=== PATIENT | female | born 1960 | race Hispanic/Latino ===

== ENCOUNTER 2018-02-18 13:48 | Emergency (ER) | payer MEDICAID | END 2018-02-18 14:48 | disposition home or self-care (01) | LOC: EDH 13:48 | DX: S90.122A Contusion of left lesser toe(s) without damage to nail, initial encounter (principal); E11.9 Type 2 diabetes mellitus without complications; I10 Essential (primary) hypertension; E07.9 Disorder of thyroid, unspecified; W22.8XXA Striking against or struck by other objects, initial encounter; Y93.89 Activity, other specified; Y92.89 Other specified places as the place of occurrence of the external cause; Y99.8 Other external cause status | CPT/HCPCS: 73630 ==

== ENCOUNTER → 2018-05-01 | Outpatient (CLI) | payer MEDICAID ==
[~2018-05-01] MED LIST: ALEN70TA47 PO; ASPI-555 PO; GLYB-228 PO; INVOK100TB PO; LEVO50TA11 PO; LISI-617 PO; METO-408 PO; SIMV20TA6 PO
== END | disposition home or self-care (01) ==
LOC: RAH 14:25
PROVIDERS: ATTEND Internal Medicine
DX: M79.641 Pain in right hand (principal)
CPT/HCPCS: 73130

== ENCOUNTER 2018-09-17 05:50 | Day surgery (SDC) | payer MEDICAID ==
[~2018-09-17] VITALS: Ht 154.9 cm; Wt 62.7 kg
[~2018-09-17 05:50] MED LIST changes: +SODIUM CHLORIDE 0.9% 1000ML 1,000 ML IV ONE
[2018-09-17 06:10] VITALS: BP 145/71
[2018-09-17] MEDS ORDERED: PROPOFOL 10 MG/ML 20ML VIAL IV ONE (06:56)
[2018-09-17] MEDS ORDERED: GLYCOPYRROLATE 0.2 MG/ML 5 ML VIAL ONE (06:56)
[2018-09-17] MEDS ORDERED: LIDOCAINE HCL-MPF 2% 5ML VIAL ONE (06:56)
[2018-09-17 07:14] VITALS: BP 118/66
[2018-09-17 07:16] VITALS: BP 120/64
[2018-09-17 07:22] VITALS: BP 131/67
[2018-09-17 07:36] VITALS: BP 128/67
== END 2018-09-17 07:40 | disposition home or self-care (01) ==
LOC: DAH 05:50 → ENDO 05:50
PROVIDERS: ATTEND Internal Medicine Gastroenterology
DX: R19.4 Change in bowel habit (principal); E11.9 Type 2 diabetes mellitus without complications; K21.9 Gastro-esophageal reflux disease without esophagitis; E03.9 Hypothyroidism, unspecified; K21.0 Gastro-esophageal reflux disease with esophagitis; F32.9 Major depressive disorder, single episode, unspecified; I10 Essential (primary) hypertension; E78.5 Hyperlipidemia, unspecified; Z53.8 Procedure and treatment not carried out for other reasons; Z79.899 Other long term (current) drug therapy; Z79.82 Long term (current) use of aspirin; Z79.84 Long term (current) use of oral hypoglycemic drugs; Z98.890 Other specified postprocedural states; Z90.710 Acquired absence of both cervix and uterus; Z90.721 Acquired absence of ovaries, unilateral
CPT/HCPCS: 45378; 82948 ×2; A4606; J2704; J3490 ×2; J7030

== ENCOUNTER 2018-11-19 05:31 | Day surgery (SDC) | payer MEDICAID ==
[~2018-11-19] VITALS: Ht 154.9 cm; Wt 63.8 kg
[~2018-11-19 05:31] MED LIST changes: -SODIUM CHLORIDE 0.9% 1000ML 1,000 ML IV ONE
[2018-11-19] MEDS ORDERED: SODIUM CHLORIDE 0.9% 1000ML 1,000 ML IV ONE ×2 (05:42→06:27)
[2018-11-19 06:03] VITALS: BP 126/66
[2018-11-19] MEDS ORDERED: PROPOFOL 10 MG/ML 20ML VIAL IV ONE (07:23)
[2018-11-19 07:45] VITALS: BP 114/56
[2018-11-19 07:50] VITALS: BP 109/58
[2018-11-19 07:55] VITALS: BP 121/54
== END 2018-11-19 08:05 | disposition home or self-care (01) ==
LOC: ENDO 05:31 → DAH 05:31 → ENDO 08:05
PROVIDERS: ATTEND Internal Medicine
DX: K62.1 Rectal polyp (principal); K64.0 First degree hemorrhoids; I10 Essential (primary) hypertension; E03.9 Hypothyroidism, unspecified; E11.9 Type 2 diabetes mellitus without complications; K21.0 Gastro-esophageal reflux disease with esophagitis; G47.00 Insomnia, unspecified; F32.9 Major depressive disorder, single episode, unspecified; E78.5 Hyperlipidemia, unspecified; Z79.899 Other long term (current) drug therapy; Z98.890 Other specified postprocedural states; Z90.710 Acquired absence of both cervix and uterus; K57.30 Diverticulosis of large intestine without perforation or abscess without bleeding
CPT/HCPCS: 45380; 82948 ×2; 88305; A4606; J2704; J7030 ×2

== ENCOUNTER → 2019-01-06 | Outpatient (CLI) | payer MEDICAID ==
[~2019-01-06] MED LIST changes: +ALEN70TA10 PO; -ALEN70TA47 PO
== END | disposition home or self-care (01) ==
LOC: RAH 09:45
PROVIDERS: ATTEND Internal Medicine Gastroenterology
DX: R14.0 Abdominal distension (gaseous) (principal); R10.9 Unspecified abdominal pain; R11.2 Nausea with vomiting, unspecified
CPT/HCPCS: 78264; A9541

== ENCOUNTER → 2019-03-27 | Outpatient (CLI) | payer MEDICAID | LOC: OIH 15:42 | PROVIDERS: ATTEND Internal Medicine Gastroenterology | DX: R10.30 Lower abdominal pain, unspecified (principal) | CPT/HCPCS: 74018 ==

== ENCOUNTER → 2019-04-08 | Outpatient (CLI) | payer MEDICAID ==
[~2019-04-08] MED LIST changes: +IOHEXOL 350 MG/ML 100ML INFUS..BTL IV ONE
[2019-04-08 12:39] LABS: BASOPHILS % (AUTO) 1.2 % (0.0-5.0); EOSINOPHILS % (AUTO) 3.4 % (0.0-8.0); LYMPHOCYTES % (AUTO) 34.9 % (21.0-51.0); MEAN CORPUSCULAR HEMOGLOBIN 27.5 pg (27.0-33.0); MEAN CORPUSCULAR HGB CONC 33.5 g/dL (32.0-36.0); MEAN CORPUSCULAR VOLUME 82.1 fL (79-99); MONOCYTES % (AUTO) 5.3 % (3.0-13.0); NEUTROPHILS % (AUTO) 55.2 % (40.0-77.0); PLATELET COUNT (AUTO) 370 K/uL (130-400); RED BLOOD CELL COUNT(AUTO) 4.26 MIL/uL (4.00-5.50); WHITE BLOOD COUNT (AUTO) 8.9 K/uL (4.8-10.8)
[2019-04-08 13:01] LABS: ALBUMIN 3.9 g/dL (3.5-5.0); CREATININE 0.7 mg/dL (0.5-1.5); POTASSIUM 4.8 mmol/L (3.5-5.1); TOTAL PROTEIN, SERUM 8.3 g/dL (6.0-8.3)
== END | disposition home or self-care (01) ==
LOC: RAH 11:32
PROVIDERS: ATTEND Internal Medicine
DX: K57.30 Diverticulosis of large intestine without perforation or abscess without bleeding (principal); M47.817 Spondylosis without myelopathy or radiculopathy, lumbosacral region
CPT/HCPCS: 36415; 74177; 80053; 85025; Q9967

== ENCOUNTER 2019-12-10 22:34 | Emergency (ER) | payer MEDICAID ==
[~2019-12-10 22:34] MED LIST changes: -GLYB-228 PO; +GLYB1TAB32 PO; -IOHEXOL 350 MG/ML 100ML INFUS..BTL IV ONE; +SIMV-43 PO; -SIMV20TA6 PO
[2019-12-10 23:44] LABS: BASOPHILS % (AUTO) 0.4 % (0.0-5.0); EOSINOPHILS % (AUTO) 2.6 % (0.0-8.0); HEMATOCRIT 32.1 % (36-48); LYMPHOCYTES % (AUTO) 32.7 % (21.0-51.0); MEAN CORPUSCULAR HEMOGLOBIN 27.5 pg (27.0-33.0); MEAN CORPUSCULAR HGB CONC 33.3 g/dL (32.0-36.0); MEAN CORPUSCULAR VOLUME 82.5 fL (79-99); MONOCYTES % (AUTO) 5.6 % (3.0-13.0); NEUTROPHILS % (AUTO) 58.4 % (40.0-77.0); PLATELET COUNT (AUTO) 373 K/uL (130-400); RED BLOOD CELL COUNT(AUTO) 3.89 MIL/uL (4.00-5.50); WHITE BLOOD COUNT (AUTO) 9.6 K/uL (4.8-10.8)
[2019-12-10 23:56] LABS: CREATININE 0.8 mg/dL (0.5-1.5); POTASSIUM 4.2 mmol/L (3.5-5.1)
[2019-12-10] MEDS ORDERED: DiphenhydrAMINE HCL 50 MG/ML VIAL ONE (23:57)
[2019-12-10] MEDS ORDERED: ONDANSETRON HCL 4 MG/2 ML VIAL ONE (23:58)
[2019-12-10] MEDS ORDERED: SODIUM CHLORIDE 0.9% 1000ML 1,000 ML IV ONE (23:58)
[2019-12-11] LABS: ALBUMIN 3.4 g/dL (3.5-5.0); BILIRUBIN,TOTAL 0.4 mg/dL (0.2-1.0)
[2019-12-11 00:26] LABS: APPEARANCE,URINE Clear (CLEAR); BILIRUBIN,URINE Negative (NEGATIVE); COLOR,URINE Yellow (YELLOW); GLUCOSE, URINE (UA) >=1000 mg/dL (NEGATIVE); KETONES,URINE Negative (NEGATIVE); LEUKOCYTE ESTERASE ,URINE Negative (NEGATIVE); NITRATE,URINE Negative (NEGATIVE); OCCULT BLOOD,URINE Negative (NEGATIVE); PROTEIN,URINE Negative (NEGATIVE)
[2019-12-11 00:44] LABS: BACTERIA,URINE None Seen /HPF (None Seen); RBC,URINE None Seen /HPF (0-1); SQUAMOUS EPITHELIAL CELL,UR Rare /HPF (0-2); WBC,URINE None Seen /HPF (0-1); YEAST,URINE BUDDING None Seen /HPF (None Seen)
== END 2019-12-11 01:44 | disposition home or self-care (01) ==
LOC: EDH 22:34
DX: E86.9 Volume depletion, unspecified (principal); H81.10 Benign paroxysmal vertigo, unspecified ear; E11.9 Type 2 diabetes mellitus without complications; I10 Essential (primary) hypertension; Z98.890 Other specified postprocedural states
CPT/HCPCS: 36415; 80053; 81001; 82550; 84484; 85025; 93005; 96361; 96374; 96375; 99285; J1200; J2405; J7030

== ENCOUNTER 2020-05-20 06:26 | Inpatient (IN) | payer MEDICAID ==
[~2020-05-20] VITALS: Ht 149.9 cm; Wt 51.1 kg
[~2020-05-20 06:26] MED LIST changes: -ASPI-555 PO; +ASPI-556 PO
[2020-05-20 07:24] LABS: APPEARANCE,URINE Clear (CLEAR); BILIRUBIN,URINE Negative (NEGATIVE); COLOR,URINE Yellow (YELLOW); GLUCOSE, URINE (UA) >=1000 mg/dL (NEGATIVE); KETONES,URINE Trace mg/dL (NEGATIVE); LEUKOCYTE ESTERASE ,URINE Negative (NEGATIVE); NITRATE,URINE Negative (NEGATIVE); OCCULT BLOOD,URINE Negative (NEGATIVE); PROTEIN,URINE Negative (NEGATIVE)
[2020-05-20] MEDS ORDERED: ONDANSETRON HCL 4 MG/2 ML VIAL ONE (07:25)
[2020-05-20 07:36] LABS: RBC,URINE 0-1 /HPF (0-1)
[2020-05-20 07:37] LABS: BACTERIA,URINE Rare /HPF (None Seen); WBC,URINE 0-1 /HPF (0-1)
[2020-05-20 07:52] LABS: BASOPHILS % (AUTO) 0.3 % (0.0-5.0); EOSINOPHILS % (AUTO) 0.1 % (0.0-8.0); LYMPHOCYTES % (AUTO) 14.7 % (21.0-51.0); MEAN CORPUSCULAR HEMOGLOBIN 26.6 pg (27.0-33.0); MEAN CORPUSCULAR HGB CONC 33.4 g/dL (32.0-36.0); MEAN CORPUSCULAR VOLUME 79.5 fL (79-99); MONOCYTES % (AUTO) 7.6 % (3.0-13.0); NEUTROPHILS % (AUTO) 76.4 % (40.0-77.0); PLATELET COUNT (AUTO) 246 K/uL (130-400); RED BLOOD CELL COUNT(AUTO) 4.78 MIL/uL (4.00-5.50); RED CELL DISTRIBUTION WIDTH 13.7 % (11.0-15.5); WHITE BLOOD COUNT (AUTO) 18.4 K/uL (4.8-10.8)
[2020-05-20 08:03] LABS: CREATININE 1.1 mg/dL (0.5-1.5); POTASSIUM 4.5 mmol/L (3.5-5.1)
[2020-05-20 08:08] LABS: ALBUMIN 4.2 g/dL (3.5-5.0); BILIRUBIN,TOTAL 0.6 mg/dL (0.2-1.0); TOTAL PROTEIN, SERUM 8.2 g/dL (6.0-8.3)
[2020-05-20] MEDS ORDERED: ZOSYN 3.375GM+NS 50ML 50 ML IV ONE (09:23)
[2020-05-20] MEDS ORDERED: IOHEXOL-350 75 ML VIAL IV ONE (10:06)
[2020-05-20] MEDS ORDERED: SODIUM CHLORIDE 0.9% 1000ML 1,000 ML IV ONE (11:08)
[2020-05-20] MEDS ORDERED: LACTATED RINGERS 1000ML 1,000 ML IV SCH (11:55)
[2020-05-20] MEDS ORDERED: ONDANSETRON HCL 4 MG/2 ML VIAL IV PRN (12:00)
[2020-05-20] MEDS ORDERED: ACETAMINOPHEN 325 MG TAB PO PRN ×2 (12:00)
[2020-05-20] MEDS ORDERED: HYDRALAZINE HCL 20 MG/ML VIAL IV PRN (12:00)
[2020-05-20] MEDS ORDERED: LACTATED RINGERS 1000ML 1,000 ML IV ONE (12:50)
[2020-05-20] MEDS ORDERED: SINCALIDE 5 MCG ML VIAL IV ONE (13:50)
[2020-05-20 17:00] VITALS: BP 125/70
[2020-05-20] MEDS: ZOSYN 3.375GM+NS 50ML 50 ML IV SCH ×2 (18:46→21:00)
[2020-05-20 20:06] VITALS: BP 130/54
[2020-05-20] MEDS: MORPHINE SULFATE 2 MG/ML 1ML SYG IV PRN (21:26)
[2020-05-20] MEDS: FAMOTIDINE/PF 20 MG/2 ML VIAL IV SCH (21:26)
[2020-05-20] MEDS ORDERED: ATOR40TA69 PO (21:45)
[2020-05-20] MEDS ORDERED: MORINGA PO (21:45)
[2020-05-20] MEDS ORDERED: METO-408 PO (21:45)
[2020-05-20] MEDS ORDERED: FENO48TA9 PO (21:45)
[2020-05-20] MEDS ORDERED: METF-444 PO ×2 (21:45)
[2020-05-21] VITALS (25 sets, daily range): BP systolic 100–165; BP diastolic 55–75
[2020-05-21] MEDS ORDERED: DEXTROSE 50%-WATER 50 ML DISP.SYRIN IV ONE (00:22)
--- NOTE | 2020-05-21 00:39 | NUR ---
PAGED SENIOR TECHNICAL WRITER PT BLOOD SUGAR IS 59. INITIATED HYPOGLYCEMIA PROTOCOL. ADMINISTERED DEXTROSE 50% VIA IV. TICO NELSON OROR CONT MONITORING OF PT, CHANGE IV FLUIDS TO D5 LR 100ML/HR. ORDERS PLACED INTO Outline App. WILL RECHECK BS AT 0100.
[2020-05-21] MEDS ORDERED: GLUCAGON 1MG KIT 1 MG ML IM PRN (00:45)
[2020-05-21] MEDS ORDERED: DEXTROSE 50%-WATER 50 ML DISP.SYRIN IV PRN (00:45)
[2020-05-21] MEDS: DEXTROSE 5%-LACTATED RINGERS 1,000 ML IV SCH ×3 (00:57→19:54)
[2020-05-21] MEDS: ZOSYN 3.375GM+NS 50ML 50 ML IV SCH ×3 (03:16→19:51)
[2020-05-21 05:41] LABS: BASOPHILS % (AUTO) 0.4 % (0.0-5.0); EOSINOPHILS % (AUTO) 1.3 % (0.0-8.0); HEMATOCRIT 28.7 % (36-48); LYMPHOCYTES % (AUTO) 27.3 % (21.0-51.0); MEAN CORPUSCULAR HGB CONC 32.8 g/dL (32.0-36.0); MEAN CORPUSCULAR VOLUME 79.5 fL (79-99); MONOCYTES % (AUTO) 10.1 % (3.0-13.0); NEUTROPHILS % (AUTO) 60.4 % (40.0-77.0); PLATELET COUNT (AUTO) 137 K/uL (130-400); RED BLOOD CELL COUNT(AUTO) 3.61 MIL/uL (4.00-5.50); WHITE BLOOD COUNT (AUTO) 11.6 K/uL (4.8-10.8)
[2020-05-21 05:46] LABS: HEMOGLOBIN A1C 6.4 % (4.0-6.0)
[2020-05-21 06:01] LABS: POTASSIUM 3.9 mmol/L (3.5-5.1)
[2020-05-21 06:13] LABS: ALBUMIN 3.1 g/dL (3.5-5.0); BILIRUBIN,DIRECT 0.1 mg/dL (0.0-0.3); BILIRUBIN,TOTAL 0.4 mg/dL (0.2-1.0); CREATININE 0.8 mg/dL (0.5-1.5); CRP QUANTITATIVE 30.8 mg/L (0.00-9.0)
[2020-05-21] MEDS: ENOXAPARIN SODIUM 30 MG/0.3 ML SQ SCH (09:00)
[2020-05-21] MEDS ORDERED: METOPROLOL SUCCINATE 50 MG TAB.SR.24H PO SCH (09:43)
[2020-05-21] MEDS: FAMOTIDINE/PF 20 MG/2 ML VIAL IV SCH ×2 (10:02→19:51)
[2020-05-21] MEDS: METOPROLOL SUCCINATE 50 MG TAB.SR.24H PO SCH (11:13)
[2020-05-21] MEDS ORDERED: ROCURONIUM 10MG/1ML SYR 10 MG/ML ML ONE (11:25)
[2020-05-21] MEDS ORDERED: PROPOFOL 10 MG/ML 20ML VIAL IV ONE (11:25)
[2020-05-21] MEDS ORDERED: LIDOCAINE PF 2% 5ML ABBOJECT ONE (11:25)
[2020-05-21] MEDS ORDERED: MIDAZOLAM HCL 1 MG/ML 2ML VIAL ONE (11:25)
[2020-05-21] MEDS ORDERED: ONDANSETRON HCL 4 MG/2 ML VIAL ONE (11:25)
[2020-05-21] MEDS ORDERED: SUCCINYLCHOLINE CHLORIDE 20 MG/ML 10 ML VIAL ONE (11:25)
[2020-05-21] MEDS ORDERED: BUPIVACAINE/PF 0.5% 10ML VIAL ONE (11:33)
[2020-05-21] MEDS ORDERED: FENTANYL CITRATE PF 50 MCG/1 ML 2ML VIAL ONE (11:57)
[2020-05-21] MEDS ORDERED: NEOSTIGMINE 5MG/5ML SYR IV ONE (12:26)
[2020-05-21] MEDS ORDERED: GLYCOPYRROLATE 1 MG/5 ML SYRINGE ONE (12:27)
[2020-05-21] MEDS ORDERED: MEPERIDINE-PF 25 MG/ML SYG ONE (13:13)
--- NOTE | 2020-05-21 17:45 | NUR ---
AMBULATE pt ambulated with assistance to BR ,linens soiled pt urinated ,complete linen change assisted back to bed Addendum: 05/21/20 at 1806 by KYLER CHARLES RN RN Amended: Links added.
[2020-05-21] MEDS: MORPHINE SULFATE 2 MG/ML 1ML SYG IV PRN (18:00)
--- NOTE | 2020-05-21 18:18 | NUR ---
cm note met with patient and [facility] resides athome with son gavi. [facility] ambulates per self, has provider 2hrs to assist with adls,and transport. attends adult day care during the week and [place]. [place] [facility] no needs. Addendum: 05/21/20 at 1822 by SANTHOSH STEEN CM Amended: Links added.
[2020-05-21] MEDS: ATORVASTATIN CALCIUM 40 MG TABLET PO SCH (19:51)
[2020-05-21] MEDS: FENOFIBRATE NANOCRYSTALLIZED 48 MG TAB PO SCH (19:55)
[2020-05-21] MEDS ORDERED: FENOFIBRATE NANOCRYSTALLIZED 48 MG TAB PO SCH (21:00)
[2020-05-22] VITALS: BP 138/65
[2020-05-22 04:02] VITALS: BP 136/64
[2020-05-22] MEDS: DEXTROSE 5%-LACTATED RINGERS 1,000 ML IV SCH (04:47)
[2020-05-22] MEDS: ZOSYN 3.375GM+NS 50ML 50 ML IV SCH ×3 (04:47→19:42)
[2020-05-22 05:23] LABS: BASOPHILS % (AUTO) 0.3 % (0.0-5.0); EOSINOPHILS % (AUTO) 0.5 % (0.0-8.0); HEMATOCRIT 27.4 % (36-48); LYMPHOCYTES % (AUTO) 22.1 % (21.0-51.0); MEAN CORPUSCULAR HEMOGLOBIN 26.6 pg (27.0-33.0); MEAN CORPUSCULAR HGB CONC 34.3 g/dL (32.0-36.0); MEAN CORPUSCULAR VOLUME 77.6 fL (79-99); MONOCYTES % (AUTO) 8.2 % (3.0-13.0); PLATELET COUNT (AUTO) 117 K/uL (130-400); RED BLOOD CELL COUNT(AUTO) 3.53 MIL/uL (4.00-5.50); RED CELL DISTRIBUTION WIDTH 14.1 % (11.0-15.5); WHITE BLOOD COUNT (AUTO) 12.9 K/uL (4.8-10.8)
[2020-05-22 05:59] LABS: BILIRUBIN,TOTAL 0.6 mg/dL (0.2-1.0); CREATININE 0.8 mg/dL (0.5-1.5); POTASSIUM 3.2 mmol/L (3.5-5.1); TOTAL PROTEIN, SERUM 6.2 g/dL (6.0-8.3)
--- NOTE | 2020-05-22 06:13 | NUR ---
HYPOKALCEMIA POTASSIUM LEVEL OF 3.2 REPORTED THIS AM. PAGED HOSPITALIST KORIN FOR POTASSIUM REPLACEMENT ORDERS. PENDING CALL BACK.
[2020-05-22 08:00] VITALS: BP 130/59
[2020-05-22] MEDS ORDERED: POTASSIUM CHLORIDE 20 MEQ ERTAB PO SCH (08:45)
[2020-05-22] MEDS: FAMOTIDINE/PF 20 MG/2 ML VIAL IV SCH ×2 (09:21→19:42)
[2020-05-22] MEDS: LISINOPRIL 5 MG TABLET PO SCH (09:23)
[2020-05-22] MEDS: METOPROLOL SUCCINATE 50 MG TAB.SR.24H PO SCH (09:24)
[2020-05-22] MEDS: LEVOTHYROXINE 50 MCG TABLET PO SCH (09:27)
[2020-05-22] MEDS: ENOXAPARIN SODIUM 30 MG/0.3 ML SQ SCH (09:29)
[2020-05-22 11:58] VITALS: BP_SYST 123; BP_SYST 140; BP_DIAS 66; BP_DIAS 76
[2020-05-22 13:11] LABS: % IRON SATURATION 13.2 % (22-44)
[2020-05-22 16:00] VITALS: BP 141/68
[2020-05-22] MEDS: ATORVASTATIN CALCIUM 40 MG TABLET PO SCH (19:42)
[2020-05-22] MEDS: FENOFIBRATE NANOCRYSTALLIZED 48 MG TAB PO SCH (19:43)
[2020-05-22 20:00] VITALS: BP 129/62
[2020-05-23] VITALS: BP 113/48
[2020-05-23] MEDS: DEXTROSE 5%-LACTATED RINGERS 1,000 ML IV SCH ×2 (02:48→13:36)
[2020-05-23 04:00] VITALS: BP 132/66
[2020-05-23] MEDS: ZOSYN 3.375GM+NS 50ML 50 ML IV SCH ×2 (04:55→13:35)
--- NOTE | 2020-05-23 05:03 | NUR ---
PAGED ONCALL PT C/O OF NOT HAVING A BM SINCE 05/20, REQUESTING A LAXATIVE. NO PRN LAXATIVE ORDERED, PENDING [facility]F[employer]STER TO RETURN PAGE.
[2020-05-23 05:28] LABS: BASOPHILS % (AUTO) 0.5 % (0.0-5.0); EOSINOPHILS % (AUTO) 3.9 % (0.0-8.0); HEMATOCRIT 32.1 % (36-48); LYMPHOCYTES % (AUTO) 19.1 % (21.0-51.0); MEAN CORPUSCULAR HEMOGLOBIN 26.1 pg (27.0-33.0); MEAN CORPUSCULAR HGB CONC 33.6 g/dL (32.0-36.0); MEAN CORPUSCULAR VOLUME 77.5 fL (79-99); MONOCYTES % (AUTO) 8.7 % (3.0-13.0); NEUTROPHILS % (AUTO) 67.3 % (40.0-77.0); PLATELET COUNT (AUTO) 109 K/uL (130-400); RED BLOOD CELL COUNT(AUTO) 4.14 MIL/uL (4.00-5.50); RED CELL DISTRIBUTION WIDTH 13.6 % (11.0-15.5); WHITE BLOOD COUNT (AUTO) 13.3 K/uL (4.8-10.8)
[2020-05-23 05:46] LABS: BILIRUBIN,TOTAL 0.8 mg/dL (0.2-1.0); CREATININE 0.8 mg/dL (0.5-1.5); POTASSIUM 3.9 mmol/L (3.5-5.1); TOTAL PROTEIN, SERUM 6.3 g/dL (6.0-8.3)
[2020-05-23 07:25] VITALS: BP 131/61
[2020-05-23] MEDS ORDERED: METF-444 PO (09:14)
[2020-05-23] MEDS: LEVOTHYROXINE 50 MCG TABLET PO SCH (09:30)
[2020-05-23] MEDS: LISINOPRIL 5 MG TABLET PO SCH (09:31)
[2020-05-23] MEDS: FAMOTIDINE/PF 20 MG/2 ML VIAL IV SCH (09:31)
[2020-05-23] MEDS: METOPROLOL SUCCINATE 50 MG TAB.SR.24H PO SCH (09:32)
[2020-05-23] MEDS: ENOXAPARIN SODIUM 30 MG/0.3 ML SQ SCH (09:32)
[2020-05-23 10:40] VITALS: BP 125/67
[2020-05-23] MEDS ORDERED: LOPERAMIDE HCL 2 MG CAP PO SCH (10:41)
--- NOTE | 2020-05-23 13:38 | NUR ---
DISCHARGE DISPO TO [facility] WITH SAME SERVICES Addendum: 05/23/20 at 1339 by MADI MILLAN RN CM Amended: Links added.
[2020-05-23 15:45] VITALS: BP 111/55
== END 2020-05-23 18:11 | disposition home or self-care (01) | DRG 263 ==
LOC: EDH 06:26 → EDHIP 06:27 → 3BH 17:05
PROVIDERS: ADMIT Hospitalist; ATTEND Hospitalist
PROC: 0FT44ZZ Resection of Gallbladder, Percutaneous Endoscopic Approach (ICD-10-PCS; principal; 2020-05-21 11:26)
DX: K81.0 Acute cholecystitis (principal); E07.9 Disorder of thyroid, unspecified; E11.9 Type 2 diabetes mellitus without complications; E78.5 Hyperlipidemia, unspecified; I10 Essential (primary) hypertension; Z83.3 Family history of diabetes mellitus
CPT/HCPCS: 36415; 74177; 76705; 78227; 80048; 80053; 80061; 80076; 81001; 82948; 83036; 83540; 83550; 83605; 83690; 83735; 84145; 84484; 85025; 86140; 87040; 88304; 93005; A9537; G0378; J0330; J0360; J1650; J2001; J2175; J2250; J2405; J2543; J2704; J2710; J2805; J3010; J3490; J7030; J7070; J7120; Q9967

== ENCOUNTER 2020-08-03 18:58 | Emergency (ER) | payer MEDICAID ==
[~2020-08-03 18:58] MED LIST changes: +ATOR40TA69 PO; +FENO48TA9 PO; -GLYB1TAB32 PO; +METF-444 PO; +MORINGA PO; -SIMV-43 PO
[2020-08-03] MEDS ORDERED: SODIUM CHLORIDE 0.9% 1000ML 1,000 ML IV ONE (18:59)
[2020-08-03] MEDS ORDERED: ONDANSETRON HCL 4 MG/2 ML VIAL ONE (20:02)
[2020-08-03 20:23] LABS: BASOPHILS % (AUTO) 0.4 % (0.0-5.0); EOSINOPHILS % (AUTO) 0.2 % (0.0-8.0); MEAN CORPUSCULAR HEMOGLOBIN 27.8 pg (27.0-33.0); MEAN CORPUSCULAR HGB CONC 34.4 g/dL (32.0-36.0); MONOCYTES % (AUTO) 6.2 % (3.0-13.0); NEUTROPHILS % (AUTO) 80.2 % (40.0-77.0); PLATELET COUNT (AUTO) 343 K/uL (130-400); RED BLOOD CELL COUNT(AUTO) 3.95 MIL/uL (4.00-5.50); RED CELL DISTRIBUTION WIDTH 14.6 % (11.0-15.5)
[2020-08-03 20:36] LABS: CREATININE 1.2 mg/dL (0.5-1.5); POTASSIUM 4.5 mmol/L (3.5-5.1)
[2020-08-03 20:41] LABS: ALBUMIN 4.1 g/dL (3.5-5.0); BILIRUBIN,TOTAL 0.5 mg/dL (0.2-1.0); TOTAL PROTEIN, SERUM 8.4 g/dL (6.0-8.3)
[2020-08-03 22:33] LABS: APPEARANCE,URINE Clear (CLEAR); BILIRUBIN,URINE Negative (NEGATIVE); COLOR,URINE Yellow (YELLOW); GLUCOSE, URINE (UA) >=1000 mg/dL (NEGATIVE); KETONES,URINE Negative (NEGATIVE); LEUKOCYTE ESTERASE ,URINE Negative (NEGATIVE); NITRATE,URINE Negative (NEGATIVE); OCCULT BLOOD,URINE Negative (NEGATIVE); PROTEIN,URINE Negative (NEGATIVE); UROBILINOGEN,URINE 0.2 mg/dL (0.2-1.0)
[2020-08-03 22:51] LABS: RBC,URINE 0-1 /HPF (0-1)
[2020-08-03 22:52] LABS: BACTERIA,URINE Rare /HPF (None Seen); HYALINE CASTS, URINE 0-1 /LPF (0-1 /LPF); SQUAMOUS EPITHELIAL CELL,UR 0-2 /HPF (0-2)
== END 2020-08-03 22:51 | disposition home or self-care (01) ==
LOC: EDH 18:58
DX: R11.2 Nausea with vomiting, unspecified (principal); R42 Dizziness and giddiness; I10 Essential (primary) hypertension; E11.9 Type 2 diabetes mellitus without complications; E07.9 Disorder of thyroid, unspecified; Z98.890 Other specified postprocedural states
CPT/HCPCS: 36415; 80053; 81001; 83605; 83880; 84484; 85025; 93005; 96361; 96374; 99284; J2405; J7030

== ENCOUNTER → 2020-11-21 | Outpatient (CLI) | payer MEDICAID ==
[~2020-11-21] MED LIST changes: -ALEN70TA10 PO; +ALEN70TA69 PO
== END | disposition home or self-care (01) ==
LOC: RAH 08:48
PROVIDERS: ATTEND Internal Medicine
DX: M25.512 Pain in left shoulder (principal)
CPT/HCPCS: 73030

== ENCOUNTER 2020-12-04 20:59 | Inpatient (IN) | payer MEDICAID ==
[~2020-12-04 20:59] MED LIST changes: -ALEN70TA69 PO; +ALEN70TA80 PO; +FENO48TA10 PO; -FENO48TA9 PO; -LISI-617 PO; +LISI5TAB21 PO
[2020-12-04] MEDS ORDERED: GUAIFENESIN-CODEINE 5 ML SYRUP ONE (22:11)
[2020-12-04 23:12] LABS: BASOPHILS % (AUTO) 0.3 % (0.0-5.0); EOSINOPHILS % (AUTO) 1.2 % (0.0-8.0); MEAN CORPUSCULAR HEMOGLOBIN 26.3 pg (27.0-33.0); MEAN CORPUSCULAR HGB CONC 32.8 g/dL (32.0-36.0); MEAN CORPUSCULAR VOLUME 80.2 fL (79-99); MONOCYTES % (AUTO) 6.1 % (3.0-13.0); NEUTROPHILS % (AUTO) 79.8 % (40.0-77.0); RED BLOOD CELL COUNT(AUTO) 3.99 MIL/uL (4.00-5.50); RED CELL DISTRIBUTION WIDTH 15.2 % (11.0-15.5); WHITE BLOOD COUNT (AUTO) 8.9 K/uL (4.8-10.8)
[2020-12-04 23:15] LABS: PLATELET COUNT (AUTO) 721 K/uL (130-400)
[2020-12-04 23:27] LABS: CARBON DIOXIDE 24 mmol/L (21-32); CHLORIDE 94 mmol/L (101-111); GLOMERULAR FILTR. RATE CALC 60 mL/min (>60); GLUCOSE,RANDOM 253 mg/dL (70-105); POTASSIUM 3.8 mmol/L (3.5-5.1); SODIUM SERUM 132 mmol/L (136-145); UREA NITROGEN, BLOOD 16 mg/dL (7-18)
[2020-12-04 23:29] LABS: INR 1.07 (0.85-1.15); PROTHROMBIN TIME 11.4 SEC (9.6-11.6)
[2020-12-04 23:31] LABS: PARTIAL THROMBOPLASTIN TIME 28.5 SEC (26.3-35.5)
[2020-12-04 23:48] LABS: ALANINE AMINOTRANSFERASE 11 U/L (12-78); ALBUMIN 2.8 g/dL (3.5-5.0); ASPARTATE AMINOTRANSFERASE 51 U/L (10-37); BILIRUBIN,TOTAL 0.6 mg/dL (0.2-1.0); CREATINE KINASE, TOTAL 42 U/L (21-232); MYOGLOBIN 59 ng/mL (10-92); TOTAL PROTEIN, SERUM 8.9 g/dL (6.0-8.3); TROPONIN I < 0.04 ng/mL (0.00-0.06)
[2020-12-05] MEDS ORDERED: AZITHROMYCIN 250 MG TABLET PO ONE (00:06)
[2020-12-05] MEDS ORDERED: CEFTRIAXONE 1G VIAL ONE ×3 (00:06→23:32)
[2020-12-05] MEDS ORDERED: DEXAMETHASONE SOD PHOSPHATE 10MG/ML 1ML VIAL ONE ×2 (00:06→23:30)
[2020-12-05] MEDS ORDERED: GUAIFENESIN-CODEINE 5 ML SYRUP ONE (00:07)
[2020-12-05 00:12] LABS: B-TYPE NATRIURETIC PEPTIDE 18 pg/mL (0-100)
[2020-12-05 01:09] LABS: ABG BASE EXCESS -1.8 mmol/L (-2.0-3.0); ABG HCO3 22.3 mmol/L (21.0-28.0); ABG OXYGEN SATURATION 91.8 % (95.0-99.0); ABG PCO2 36 mmHg (32-45)
[2020-12-05] MEDS ORDERED: DOXYCYCLINE 100MG+NS 250ML IV SCH (03:45)
[2020-12-05] MEDS ORDERED: CEFTRIAXONE 1G VIAL IVP SCH (03:45)
[2020-12-05] MEDS ORDERED: ERGOCALCIFEROL (VITAMIN D2) 50,000 UNIT CAPSULE PO ONE (03:45)
[2020-12-05] MEDS ORDERED: DEXAMETHASONE SOD PHOSPHATE 4 MG/ML 1ML VIAL IVP SCH (03:45)
[2020-12-05] MEDS ORDERED: ONDANSETRON 4MG INJ IV PRN (04:00)
[2020-12-05] MEDS ORDERED: GUAIFENESIN-DM 200/20 MG 10 ML PO PRN (04:00)
[2020-12-05] MEDS ORDERED: ERGOCALCIFEROL (VITAMIN D2) 50,000 UNIT CAPSULE ONE (04:24)
[2020-12-05] MEDS ORDERED: ASPIRIN 81MG CHEW TAB ONE (07:36)
[2020-12-05] MEDS ORDERED: ACETYLCYSTEINE 600 MG CAPSULE ONE ×2 (07:37→23:31)
[2020-12-05] MEDS ORDERED: ASCORBIC ACID 500 MG TAB ONE (07:37)
[2020-12-05] MEDS ORDERED: DEXAMETHASONE SOD PHOSPHATE 4 MG/ML 1ML VIAL ONE (07:37)
[2020-12-05] MEDS ORDERED: ZINC SULFATE 220 CAPSULE ONE (07:37)
[2020-12-05] MEDS ORDERED: FAMOTIDINE 20MG VIAL IV ONE ×2 (07:38→23:33)
[2020-12-05] MEDS ORDERED: ENOXAPARIN SODIUM 30 MG/0.3 ML SQ ONE (07:38)
[2020-12-05] MEDS ORDERED: INSULIN HUMULIN R 100 UNIT/ML 3ML ONE (08:20)
[2020-12-05] MEDS ORDERED: FAMOTIDINE 20MG VIAL IV SCH (09:00)
[2020-12-05] MEDS ORDERED: ENOXAPARIN SODIUM 30 MG/0.3 ML SQ SCH ×2 (09:00→21:00)
[2020-12-05] MEDS ORDERED: ACETYLCYSTEINE 600 MG CAPSULE PO SCH (09:00)
[2020-12-05] MEDS ORDERED: ASPIRIN 81 MG EC TAB PO SCH (09:00)
[2020-12-05] MEDS ORDERED: ZINC SULFATE 220 CAPSULE PO SCH (09:00)
[2020-12-05] MEDS ORDERED: ASCORBIC ACID 500 MG TAB PO SCH (09:00)
[2020-12-05] MEDS ORDERED: DOXYCYCLINE 100MG+NS 250ML 250 ML IV ONE ×2 (10:19→23:32)
[2020-12-05] MEDS ORDERED: OMEP40CA21 PO (13:23)
[2020-12-05] MEDS ORDERED: FERR325T22 PO (13:23)
[2020-12-05] MEDS ORDERED: CANA300T PO (13:23)
[2020-12-05] MEDS ORDERED: GLYB1TAB30 PO (13:23)
[2020-12-05] MEDS ORDERED: FENO145T PO (13:23)
[2020-12-05] MEDS ORDERED: FOLIC ACID PO (13:23)
[2020-12-05] MEDS ORDERED: GUAIFENESIN-DM 200/20 MG 10 ML ONE (16:05)
[2020-12-05] MEDS ORDERED: ENOXAPARIN SODIUM 40 MG/0.4 ML SYRINGE SQ ONE (23:31)
[2020-12-06 05:22] LABS: HEMATOCRIT 27.1 % (36-48); LYMPHOCYTES % (AUTO) 12.2 % (21.0-51.0); MEAN CORPUSCULAR HGB CONC 32.5 g/dL (32.0-36.0); MEAN CORPUSCULAR VOLUME 79.9 fL (79-99); MONOCYTES % (AUTO) 3.9 % (3.0-13.0); RED BLOOD CELL COUNT(AUTO) 3.39 MIL/uL (4.00-5.50); RED CELL DISTRIBUTION WIDTH 15.1 % (11.0-15.5); WHITE BLOOD COUNT (AUTO) 6.9 K/uL (4.8-10.8)
[2020-12-06 05:24] LABS: PLATELET COUNT (AUTO) 720 K/uL (130-400)
[2020-12-06 06:01] LABS: ALBUMIN 2.1 g/dL (3.5-5.0); BILIRUBIN,TOTAL 0.3 mg/dL (0.2-1.0); CREATININE 0.8 mg/dL (0.5-1.5); POTASSIUM 4.2 mmol/L (3.5-5.1); TOTAL PROTEIN, SERUM 7.2 g/dL (6.0-8.3)
[2020-12-06 06:12] LABS: CRP QUANTITATIVE 221.2 mg/L (0.00-9.0)
[2020-12-06] MEDS ORDERED: ASPIRIN 81MG CHEW TAB ONE (08:15)
[2020-12-06] MEDS ORDERED: ZINC SULFATE 220 CAPSULE ONE (08:15)
[2020-12-06] MEDS ORDERED: ACETYLCYSTEINE 600 MG CAPSULE ONE ×3 (08:15→21:52)
[2020-12-06] MEDS ORDERED: ASCORBIC ACID 500 MG TAB ONE (08:15)
[2020-12-06] MEDS ORDERED: ENOXAPARIN SODIUM 30 MG/0.3 ML SQ ONE ×2 (08:16→21:53)
[2020-12-06] MEDS ORDERED: FAMOTIDINE 20MG VIAL IV ONE ×2 (08:16→21:54)
[2020-12-06] MEDS ORDERED: CEFTRIAXONE 1G VIAL ONE ×2 (11:25→21:53)
[2020-12-06] MEDS ORDERED: DOXYCYCLINE 100MG+NS 250ML 250 ML IV ONE ×2 (12:45→21:53)
[2020-12-06] MEDS ORDERED: GUAIFENESIN-DM 200/20 MG 10 ML ONE (14:47)
[2020-12-06] MEDS ORDERED: NON-FORMULARY MEDICATION 1 EACH (Alendronate Sodium 70 MG) PO SCH (15:30)
[2020-12-06] MEDS ORDERED: ATORVASTATIN 40 MG TABLET PO SCH (21:00)
[2020-12-06] MEDS ORDERED: GLYBURIDE METFORMIN PO SCH (21:00)
[2020-12-06] MEDS ORDERED: DEXAMETHASONE SOD PHOSPHATE 10MG/ML 1ML VIAL ONE (21:51)
[2020-12-06] MEDS ORDERED: ATORVASTATIN 40 MG TABLET ONE (21:52)
[2020-12-07 05:05] LABS: BASOPHILS % (AUTO) 0.1 % (0.0-5.0); EOSINOPHILS % (AUTO) 0.2 % (0.0-8.0); HEMATOCRIT 29.8 % (36-48); LYMPHOCYTES % (AUTO) 13.4 % (21.0-51.0); MEAN CORPUSCULAR HEMOGLOBIN 26.5 pg (27.0-33.0); MEAN CORPUSCULAR HGB CONC 33.2 g/dL (32.0-36.0); MEAN CORPUSCULAR VOLUME 79.9 fL (79-99); MONOCYTES % (AUTO) 3.9 % (3.0-13.0); NEUTROPHILS % (AUTO) 80.9 % (40.0-77.0); RED BLOOD CELL COUNT(AUTO) 3.73 MIL/uL (4.00-5.50); RED CELL DISTRIBUTION WIDTH 15.3 % (11.0-15.5); WHITE BLOOD COUNT (AUTO) 8.6 K/uL (4.8-10.8)
[2020-12-07 05:12] LABS: PLATELET COUNT (AUTO) 782 K/uL (130-400)
[2020-12-07 05:29] LABS: ALBUMIN 2.4 g/dL (3.5-5.0); BILIRUBIN,TOTAL 0.4 mg/dL (0.2-1.0); CREATININE 0.7 mg/dL (0.5-1.5); CRP QUANTITATIVE 113.6 mg/L (0.00-9.0); POTASSIUM 4.5 mmol/L (3.5-5.1); TOTAL PROTEIN, SERUM 7.5 g/dL (6.0-8.3)
[2020-12-07] MEDS ORDERED: CANAGLIFLOZIN 300 MG PO SCH (08:00)
[2020-12-07] MEDS ORDERED: NON-FORMULARY MEDICATION 1 EACH ([Folic Acid] 1 MG) PO SCH (09:00)
[2020-12-07] MEDS ORDERED: METOPROLOL SUCCINATE 50 MG TAB.SR.24H PO SCH (09:00)
[2020-12-07] MEDS ORDERED: FERROUS SULFATE 325 MG TABLET.DR PO SCH (09:00)
[2020-12-07] MEDS ORDERED: FOLIC ACID 1 MG TABLET PO SCH (09:00)
[2020-12-07] MEDS ORDERED: FENOFIBRATE NANOCRYSTALLIZED 145 MG TAB PO SCH (09:00)
[2020-12-07] MEDS ORDERED: NON-FORMULARY MEDICATION 1 EACH (Metoprolol Succinate 25 MG) PO SCH (09:00)
[2020-12-07] MEDS ORDERED: ASPIRIN 81 MG EC TAB PO SCH (09:00)
[2020-12-07] MEDS ORDERED: NON-FORMULARY MEDICATION 1 EACH (Ferrous Sulfate 325 MG) PO SCH (09:00)
[2020-12-07] MEDS ORDERED: FERROUS SULFATE 325 MG TABLET.DR ONE (09:14)
[2020-12-07] MEDS ORDERED: ASCORBIC ACID 500 MG TAB ONE (09:14)
[2020-12-07] MEDS ORDERED: ASPIRIN 81MG CHEW TAB ONE (09:14)
[2020-12-07] MEDS ORDERED: ACETYLCYSTEINE 600 MG CAPSULE ONE (09:14)
[2020-12-07] MEDS ORDERED: ENOXAPARIN SODIUM 30 MG/0.3 ML SQ ONE (09:15)
[2020-12-07] MEDS ORDERED: FOLIC ACID 1 MG TABLET ONE (09:15)
[2020-12-07] MEDS ORDERED: ZINC SULFATE 220 CAPSULE ONE (09:15)
[2020-12-07] MEDS ORDERED: FAMOTIDINE 20MG VIAL IV ONE (09:15)
[2020-12-07] MEDS ORDERED: METOPROLOL SUCCINATE 50 MG TAB.SR.24H PO ONE (09:15)
[2020-12-07] MEDS ORDERED: METFORMIN PO SCH (09:30)
[2020-12-07] MEDS ORDERED: GLYBURIDE PO SCH (09:30)
[2020-12-07 09:44] LABS: HEMOGLOBIN A1C 6.4 % (4.0-6.0)
[2020-12-07] MEDS ORDERED: GLYBURIDE 2.5 MG TAB PO SCH (10:00)
[2020-12-07] MEDS ORDERED: METFORMIN HCL 500 MG TABLET PO SCH (10:00)
[2020-12-07] MEDS ORDERED: CEFTRIAXONE 1G VIAL ONE (15:04)
[2020-12-07] MEDS ORDERED: 0.9%NACL 50ML 50 ML IV ONE (15:05)
[2020-12-07] MEDS ORDERED: DOXYCYCLINE 100MG+NS 250ML 250 ML IV ONE (15:30)
[2020-12-07] MEDS ORDERED: DEXA6TAB PO (17:49)
[2020-12-07] MEDS ORDERED: APIX2.5T PO (17:49)
[2020-12-07] MEDS ORDERED: PANT40TA PO (17:49)
[2020-12-13] MEDS ORDERED: ALENDRONATE 70MG PO SCH (07:00)
== END 2020-12-07 19:51 | disposition home or self-care (01) | DRG 137 ==
LOC: EDH 20:59 → EDHIP 21:00
PROVIDERS: ADMIT Hospitalist; ATTEND Hospitalist
DX: U07.1 COVID-19 (principal); J12.82 Pneumonia due to coronavirus disease 2019; E11.9 Type 2 diabetes mellitus without complications; I10 Essential (primary) hypertension; E03.9 Hypothyroidism, unspecified; R09.02 Hypoxemia; R06.03 Acute respiratory distress; E78.5 Hyperlipidemia, unspecified; Z83.3 Family history of diabetes mellitus
CPT/HCPCS: 36415; 36600; 71045; 80053; 82550; 82728; 82803; 82948; 83036; 83605; 83615; 83874; 83880; 84145; 84484; 85025; 85378; 85610; 85730; 86140; 87040; 87426; 93005; G0378; J0696; J1100; J1650; J1815; J3490; U0003

== ENCOUNTER 2022-04-07 13:02 | Emergency (ER) | payer MEDICAID ==
[~2022-04-07] VITALS: Ht 152.4 cm; Wt 56.7 kg
[~2022-04-07 13:02] MED LIST changes: +APIX2.5T PO; -ASPI-556 PO; +CANA300T PO; +DEXA6TAB PO; +FENO145T PO; -FENO48TA10 PO; +FERR325T22 PO; +FOLIC ACID PO; +GLYB1TAB30 PO; -INVOK100TB PO; -LEVO50TA11 PO; -LISI5TAB21 PO; -METF-444 PO; -MORINGA PO; +PANT40TA PO
[2022-04-07 13:33] LABS: APPEARANCE,URINE Clear (CLEAR); BILIRUBIN,URINE Negative (NEGATIVE); COLOR,URINE Yellow (YELLOW); GLUCOSE, URINE (UA) >=1000 mg/dL (NEGATIVE); KETONES,URINE Negative (NEGATIVE); LEUKOCYTE ESTERASE ,URINE Negative (NEGATIVE); NITRATE,URINE Negative (NEGATIVE); OCCULT BLOOD,URINE Negative (NEGATIVE); PROTEIN,URINE Negative (NEGATIVE); UROBILINOGEN,URINE 0.2 mg/dL (0.2-1.0)
[2022-04-07 13:52] LABS: BASOPHILS % (AUTO) 0.4 % (0.0-5.0); EOSINOPHILS % (AUTO) 0.9 % (0.0-8.0); HEMATOCRIT 36.5 % (36-48); LYMPHOCYTES % (AUTO) 12.1 % (21.0-51.0); MEAN CORPUSCULAR HEMOGLOBIN 26.9 pg (27.0-33.0); MEAN CORPUSCULAR HGB CONC 33.2 g/dL (32.0-36.0); MEAN CORPUSCULAR VOLUME 81.1 fL (79-99); MONOCYTES % (AUTO) 7.7 % (3.0-13.0); NEUTROPHILS % (AUTO) 77.8 % (40.0-77.0); PLATELET COUNT (AUTO) 131 K/uL (130-400); RED CELL DISTRIBUTION WIDTH 13.2 % (11.0-15.5)
[2022-04-07] MEDS ORDERED: ONDANSETRON 4MG INJ ONE (13:55)
[2022-04-07 13:59] LABS: POTASSIUM 4.4 mmol/L (3.5-5.1)
[2022-04-07] MEDS ORDERED: 0.9%NACL 1000ML 1,000 ML IV SCH (14:00)
[2022-04-07] MEDS ORDERED: ONDANSETRON 4MG INJ IVP SCH (14:00)
[2022-04-07 14:03] LABS: BILIRUBIN,TOTAL 0.8 mg/dL (0.2-1.0); TOTAL PROTEIN, SERUM 7.8 g/dL (6.0-8.3)
[2022-04-07 14:34] LABS: BACTERIA,URINE Rare /HPF (None Seen); RBC,URINE 0-1 /HPF (0-1); SQUAMOUS EPITHELIAL CELL,UR Rare /HPF (0-2); WBC,URINE 0-1 /HPF (0-1)
[2022-04-07] MEDS ORDERED: FAMOTIDINE 20MG VIAL IV ONE (14:48)
[2022-04-07] MEDS ORDERED: ONDA4TAB10 PO (15:20)
[2022-04-07] MEDS ORDERED: LEVO500T90 PO (15:20)
[2022-04-07] MEDS ORDERED: METR375C2 PO (15:20)
[2022-04-07] MEDS ORDERED: CEFTRIAXONE 1G VIAL IVP SCH (15:30)
[2022-04-07] MEDS ORDERED: CEFTRIAXONE 1G VIAL ONE (15:39)
[2022-04-07 16:26] VITALS: BP 126/84
== END 2022-04-07 15:50 | disposition home or self-care (01) ==
LOC: EDH 13:02
DX: K52.9 Noninfective gastroenteritis and colitis, unspecified (principal); E11.65 Type 2 diabetes mellitus with hyperglycemia; D72.829 Elevated white blood cell count, unspecified; I10 Essential (primary) hypertension; Z90.710 Acquired absence of both cervix and uterus; Z98.890 Other specified postprocedural states
CPT/HCPCS: 36415; 74176; 80053; 81001; 84484; 85025; 87507; 93005; 96361; 96374; 96375; 99285; J0696; J2405; J7030; S0028; J3490

== ENCOUNTER → 2022-04-13 | Outpatient (CLI) | payer MEDICAID ==
[~2022-04-13] MED LIST changes: +LEVO500T90 PO; +METR375C2 PO; +ONDA4TAB10 PO
== END | disposition home or self-care (01) ==
LOC: RAH 09:24
PROVIDERS: ATTEND Internal Medicine
DX: R10.11 Right upper quadrant pain (principal); Z90.49 Acquired absence of other specified parts of digestive tract
CPT/HCPCS: 76705

== ENCOUNTER → 2022-11-01 | Outpatient (CLI) | payer MEDICAID ==
[~2022-11-01] MED LIST changes: +GLYB-171 PO; -GLYB1TAB30 PO; +LEVO-70 PO; -LEVO500T90 PO
== END | disposition home or self-care (01) ==
LOC: RAH 09:42
PROVIDERS: ATTEND Internal Medicine
DX: M54.2 Cervicalgia (principal)
CPT/HCPCS: 72040